=== PATIENT | female | born 1960 | race Caucasian/White ===

== ENCOUNTER 2017-09-19 14:50 | Outpatient (RCR) | payer OTHER, SELFPAY | END 2017-09-24 | LOC: INF 14:50 | PROVIDERS: PCP Physician Assistant | DX: C50.919 Malignant neoplasm of unspecified site of unspecified female breast (principal) | CPT/HCPCS: 99214 ==

== ENCOUNTER 2018-01-29 01:24 | Emergency (ER) | payer OTHER, SELFPAY ==
[2018-01-29 01:34] VITALS: BP 130/82; PULSE 89; RESP 18; TEMP 36.3; O2SAT 94; BMI 42.3
--- NOTE | 2018-01-29 03:08 | ED_ITS ---
HPI - Allergic Reaction General Chief complaint: Allergic Reaction Stated complaint: HIVES ALL OVER, ITCHING HANDS/FEET Time Seen by Provider: 01/29/18 03:08 Source: patient Mode of arrival: ambulatory Limitations: no limitations History of Present Illness HPI narrative: The patient was at a birthday constitution party earlier today. She developed itchiness and hives afterwards. She did take Benadryl and went to bed , when she awoke she was covered with hives, worse than before the medication. She particularly noted a lot of swelling to the hands and feet. She was very uncomfortable. She had minimal throat tightness, and no difficulty swallowing or breathing. She had no facial swelling, or tongue or oral edema. She has not been ill. She has no URI symptoms, no fever or chills. She has no history of allergic reactions. She had a little swelling to the upper lip yesterday, 1 day prior. Related Data Home Medications Medication Instructions Recorded Confirmed DICYCLOMINE HCL (BENTYL) 20 mg PO QDAY #0 11/03/12 LEVOTHYROXINE SODIUM 0.15 mg PO QDAY #0 11/03/12 [ASA] 81 mg Q DAY #0 11/03/12 [CRANBERRY EXTRACT] 4,200 mg PO BID #0 09/28/17 [D-MANNOSE] 2 tab PO QDAY #0 09/28/17 [TURMERIC] 450 mg PO QDAY #0 09/28/17 ibuprofen 800 mg PO PRN PRN #0 09/28/17 simvastatin 20 mg PO QDAY #0 09/28/17 Previous Rx's Medication Instructions Recorded prednisone 60 mg PO DAILY 5 Days #15 tab 01/29/18 Allergies Allergy/AdvReac Type Severity Reaction Status Date / Time No Known Allergies Allergy Uncoded 10/05/17 12:14 Review of Systems Constitutional Reports as per HPI, Denies chills, Denies fever(s), Denies lethargy and Denies weakness Eyes Denies eye discharge and Denies irritation ENT Ears, Nose, Mouth, and Throat: Denies change in voice, Denies neck pain, Denies sore throat, Denies throat swelling and Denies tongue swelling Cardiovascular Denies chest pain, Denies irregular heart rhythm, Denies lightheadedness, Denies palpitations, Denies dyspnea, Denies dyspnea on exertion and Denies orthopnea Respiratory Denies cough, Denies dyspnea, Denies dyspnea on exertion and Denies wheezing Gastrointestinal Gastrointestinal: Denies abdominal pain, Denies change in bowel habits, Denies diarrhea, Denies nausea and Denies vomiting Musculoskeletal Denies neck pain Integumentary/Breasts Reports as per HPI and Reports other ( Extensive urticaria.) Neurologic Denies weakness Endocrine Denies palpitations Allergic/Immunologic Denies throat swelling, Denies tongue swelling and Denies wheezing PFSH Medical History Hyperlipidemia (Acute) Hypothyroidism (Acute) Exam Initial Vital Signs Initial Vital Signs: Vital Signs Temperature 97.3 F L 01/29/18 01:34 Pulse Rate 89 01/29/18 01:34 Respiratory Rate 18 01/29/18 01:34 Blood Pressure 130/82 H 01/29/18 01:34 Pulse Oximetry 94 01/29/18 01:34 Const General: cooperative and well developed Nutritional Appearance: well nourished Orientation: alert, awake, oriented x3 and not confused HENMT Head: normocephalic and atraumatic Nose: external nose normal Mouth: oral mucosae normal and moist mucous membranes Throat: posterior oropharynx normal, tonsils normal and uvula midline Eyes Conjunctivae: conjunctivae normal Resp Effort & Inspection: normal respiratory effort, able to speak in complete sentences, no respiratory distress and no use of accessory muscles Auscultation: clear to auscultation bilaterally, no rales, no rhonchi and no wheezes Cardio Rate: regular rate Rhythm: regular rhythm Heart Sounds: S1 normal, S2 normal, no click, no gallops, no murmurs and no rubs Pulses: normal peripheral pulses Skin General: other ( Urticaria has resolved other than a couple small spots on her abdomen. Her skin is otherwise normal.) Course Vital Signs - 8 hr 01/29/18 01:34 01/29/18 04:17 Temperature 97.3 F L 98.7 F Pulse Rate 89 76 Respiratory Rate 18 18 Blood Pressure 130/82 H 128/84 H Pulse Oximetry 94 97 Discharge Plan Departure Patient Disposition: Home, Self-Care Clinical Impression: Allergic reaction Discharge Date/Time: 01/29/18 04:18 Interventions: ED Discharge Assessment Last Done: 01/29/18 04:17 Instructions: DI for General Allergic Reactions Activity Restrictions/Additional Instructions: shower tonight, wash all clothes used throughout the day. If symptoms return, Benadryl 25 mg every 4 hr as needed. Prednisone 60 mg daily for 5 days. Return here as needed. Prescriptions: New prednisone 20 mg tablet 60 mg PO DAILY 5 Days Qty: 15 RF: 0 No Action DICYCLOMINE HCL (BENTYL) 20 mg PO QDAY Qty: 0 RF: 0 LEVOTHYROXINE SODIUM 0.15 mg PO QDAY Qty: 0 RF: 0 [ASA] 81 mg Q DAY Qty: 0 RF: 0 [D-MANNOSE] 2 tab PO QDAY Qty: 0 RF: 0 simvastatin 20 MG tablet 20 mg PO QDAY Qty: 0 RF: 0 ibuprofen 400 MG tablet 800 mg PO PRN PRNQty: 0 RF: 0 [TURMERIC] 450 mg PO QDAY Qty: 0 RF: 0 [CRANBERRY EXTRACT] 4,200 mg PO BID Qty: 0 RF: 0
[2018-01-29 04:17] VITALS: BP 128/84; PULSE 76; RESP 18; TEMP 37.1; O2SAT 97
== END 2018-01-29 04:18 | disposition home or self-care (01) ==
PROVIDERS: Emergency Provider Emergency Medicine; PCP Physician Assistant
DX: R21 Rash and other nonspecific skin eruption (principal); T78.40XA Allergy, unspecified, initial encounter
CPT/HCPCS: 99282

== ENCOUNTER → 2018-09-04 15:24 | Outpatient (CLI) | payer OTHER, SELFPAY ==
[2018-09-04 16:00] LABS: Add Manual Diff / Slide Review NO; Basophils Absolute Auto 0 /uL (0-100); Basophils Percent Auto 0.6 % (0-2); Eosinophils Absolute Auto 200 /uL (0-450); Eosinophils Percent Auto 2.3 % (2-4); Hematocrit 38.8 % (36-46); Hemoglobin 13.1 g/dL (12.0-16.0); Lymphocytes Absolute Auto 1700 /uL (1100-4500); Lymphocytes Percent Auto 24.6 % (25-40); Mean Corpuscular HGB Conc 33.6 % (30-36); Mean Corpuscular Hemoglobin 31.1 PG (26-34); Mean Corpuscular Volume 92.5 fL (80-100); Monocytes Absolute Auto 700 /uL (0-900); Monocytes Percent Auto 9.7 % (3-14); Neutrophils Absolute Auto 4300 /uL (1500-7000); Neutrophils Percent Auto 62.8 % (50-75); Platelet Count 258 X10^3/uL (150-400); Red Cell Distribution Width 13.6 % (11.6-14.8); White Blood Cell Count 6.9 X10^3/uL (4.5-11.0)
[2018-09-04 16:43] LABS: HEMOLYSIS < 15 (0-50); Potassium 4.6 mmol/L (3.4-5.1)
[2018-09-04 16:44] LABS: Alanine Aminotransferase 30 IU/L (9-52); Albumin 3.8 g/dL (3.5-5.0); Albumin Globulin Ratio 1.4 (1.0-2.8); Alkaline Phosphatase 53 U/L (38-126); Aspartate Aminotransferase 17 IU/L (14-36); Bilirubin Total 0.2 mg/dL (0.2-1.3); Blood Urea Nitrogen 16 mg/dL (7-17); Calcium 9.3 mg/dL (8.4-10.2); Carbon Dioxide 33 mmol/L (22-32); Chloride 106 mmol/L (98-107); Estimated Glomerular Filt Rate > 60.0 mL/min (>60); Globulin 2.8 g/dL (1.7-4.1); Glucose 103 mg/dL (70-100); Sodium 144 mmol/L (137-145); Total Protein 6.6 g/dL (6.3-8.2)
[2018-09-06 16:09] LABS: Cancer Antigen 27.29 22 U/mL (< 38)
== END ==
PROVIDERS: Visit Provider Nurse Practitioner Gerontology
DX: C50.919 Malignant neoplasm of unspecified site of unspecified female breast (principal)
CPT/HCPCS: 36415; 80053; 85025; 86300

== ENCOUNTER → 2018-12-06 07:53 | Outpatient (CLI) | payer OTHER, SELFPAY ==
--- NOTE | 2018-12-06 | DI.MG.S_ITS ---
BILATERAL DIGITAL SCREENING MAMMOGRAM 3D/2D WITH CAD POST LUMPECTOMY: 12/06/2018 CLINICAL: Routine screening. Personal history of left breast cancer. Family history of breast cancer. Comparison is made to exams dated: 09/12/2017 mammogram, 09/08/2016 mammogram, and 09/08/2015 mammogram - [facility]. There are scattered fibroglandular elements in both breasts. Current study was also evaluated with a Computer Aided Detection (CAD) system. There are benign post operative findings in the left breast. No significant masses, calcifications, or other findings are seen in either breast. There has been no significant interval change. IMPRESSION: There is no mammographic evidence of malignancy. A 1 year screening mammogram is recommended. This exam was interpreted at Station ID: [id number]. NOTE: For mammograms, a report in lay terms will be sent to the patient. Approximately 15% of breast malignancies will not be visualized mammographically. In the management of a palpable breast mass, a negative mammogram must not discourage biopsy of a clinically suspicious lesion. Electronically Signed By: Sekou montano/chaitanya:12/06/2018 16:31:26 letter sent: Normal Exam ACR BI-RADS Category 2: Benign Finding(s) 3342F
== END ==
PROVIDERS: PCP Physician Assistant
DX: Z12.31 Encounter for screening mammogram for malignant neoplasm of breast (principal); Z85.3 Personal history of malignant neoplasm of breast; Z80.3 Family history of malignant neoplasm of breast
CPT/HCPCS: 77063; 77067

== ENCOUNTER → 2019-12-19 14:29 | Outpatient (CLI) | payer OTHER, SELFPAY ==
--- NOTE | 2019-12-19 | DI.MG.S_ITS ---
BILATERAL DIGITAL SCREENING MAMMOGRAM 3D/2D WITH CAD POST LUMPECTOMY: 12/19/2019 CLINICAL: Routine screening. Family history of breast cancer. History of breast cancer. Comparison is made to exams dated: 12/06/2018 mammogram, 09/12/2017 mammogram, and 09/08/2016 mammogram - [facility]. The tissue of both breasts is heterogeneously dense. This may lower the sensitivity of mammography. Current study was also evaluated with a Computer Aided Detection (CAD) system. There is a benign calcification in the left breast. There also are benign post operative findings in the left breast. No significant masses, calcifications, or other findings are seen in either breast. There has been no significant interval change. IMPRESSION: There is no mammographic evidence of malignancy. A 1 year screening mammogram is recommended. This exam was interpreted at Station ID: [id number]. NOTE: For mammograms, a report in lay terms will be sent to the patient. Approximately 15% of breast malignancies will not be visualized mammographically. In the management of a palpable breast mass, a negative mammogram must not discourage biopsy of a clinically suspicious lesion. Electronically Signed By: Cynthia bell/chaitanya:12/19/2019 17:29:21 letter sent: Normal Exam ACR BI-RADS Category 2: Benign Finding(s) 3342F
== END ==
PROVIDERS: PCP Physician Assistant; Referring Provider Physician Assistant; Visit Provider Internal Medicine
DX: Z12.31 Encounter for screening mammogram for malignant neoplasm of breast (principal); Z85.3 Personal history of malignant neoplasm of breast; Z80.3 Family history of malignant neoplasm of breast
CPT/HCPCS: 77063; 77067

== ENCOUNTER → 2020-12-20 07:37 | Outpatient (CLI) | payer OTHER, SELFPAY ==
--- NOTE | 2020-12-20 07:41 | DI.MG.S_ITS ---
BILATERAL DIGITAL SCREENING MAMMOGRAM 3D/2D WITH CAD: 12/20/2020 CLINICAL: Routine screening. Personal history of left breast cancer. Family history of breast cancer. Comparison is made to exams dated: 12/19/2019 mammogram, 12/06/2018 mammogram, 09/12/2017 mammogram, 05/17/2014 mammogram, 09/08/2016 mammogram, and 09/08/2015 mammogram - [facility]. There are scattered fibroglandular elements in both breasts. Current study was also evaluated with a Computer Aided Detection (CAD) system. There is a benign calcification in the left breast. There also are benign post operative findings in the left breast. No significant masses, calcifications, or other findings are seen in either breast. There has been no significant interval change. IMPRESSION: BENIGN There is no mammographic evidence of malignancy. A 1 year screening mammogram is recommended. This exam was interpreted at Station ID: [id number]. NOTE: For mammograms, a report in lay terms will be sent to the patient. Approximately 15% of breast malignancies will not be visualized mammographically. In the management of a palpable breast mass, a negative mammogram must not discourage biopsy of a clinically suspicious lesion. Electronically Signed By: Ben ochoa/chaitanya:12/22/2020 07:30:40 letter sent: Normal Exam ACR BI-RADS Category 2: Benign Finding(s) 3342F
[2020-12-20 09:26] LABS: Add Manual Diff / Slide Review NO; Basophils Absolute Auto 0 /uL (0-100); Basophils Percent Auto 0.5 % (0-2); Eosinophils Absolute Auto 200 /uL (0-450); Eosinophils Percent Auto 2.3 % (2-4); Hematocrit 41.1 % (36-46); Hemoglobin 13.8 g/dL (12.0-16.0); Lymphocytes Absolute Auto 1700 /uL (1100-4500); Mean Corpuscular HGB Conc 33.6 % (30-36); Mean Corpuscular Hemoglobin 31.2 PG (26-34); Mean Corpuscular Volume 92.9 fL (80-100); Monocytes Absolute Auto 600 /uL (0-900); Neutrophils Absolute Auto 4400 /uL (1500-7000); Neutrophils Percent Auto 63.2 % (50-75); Platelet Count 248 X10^3/uL (150-400); Red Blood Cell Count 4.42 X10^6/uL (4.0-5.2); Red Cell Distribution Width 13.9 % (11.6-14.8); White Blood Cell Count 6.9 X10^3/uL (4.5-11.0)
[2020-12-20 09:53] LABS: Alanine Aminotransferase 24 IU/L (<35); Albumin Globulin Ratio 1.2 (1.0-2.8); Alkaline Phosphatase 62 U/L (38-126); Aspartate Aminotransferase 24 IU/L (14-36); Bilirubin Total 0.4 mg/dL (0.2-1.3); Blood Urea Nitrogen 21 mg/dL (7-17); Calcium 9.6 mg/dL (8.4-10.2); Carbon Dioxide 26 mmol/L (22-32); Chloride 108 mmol/L (98-107); Estimated Glomerular Filt Rate > 60.0 mL/min (>60); Globulin 3.3 g/dL (1.7-4.1); Glucose 94 mg/dL (70-100); HEMOLYSIS < 15 (0-50); Sodium 141 mmol/L (137-145); Total Protein 7.3 g/dL (6.3-8.2)
== END ==
PROVIDERS: PCP Physician Assistant; Referring Provider Internal Medicine; Visit Provider Internal Medicine
DX: Z12.31 Encounter for screening mammogram for malignant neoplasm of breast (principal); Z85.3 Personal history of malignant neoplasm of breast; Z80.3 Family history of malignant neoplasm of breast; C15.9 Malignant neoplasm of esophagus, unspecified
CPT/HCPCS: 36415; 77063; 77067; 80053; 85025

== ENCOUNTER → 2021-12-22 06:57 | Outpatient (CLI) | payer OTHER, SELFPAY ==
--- NOTE | 2021-12-22 | DI.MG.S_ITS ---
BILATERAL DIGITAL SCREENING MAMMOGRAM 3D/2D WITH CAD: 12/22/2021 CLINICAL: Routine screening. Breast cancer. Family history of breast cancer. Comparison is made to exams dated: 12/20/2020 mammogram, 12/19/2019 mammogram, and 12/06/2018 mammogram - [facility]. There are scattered fibroglandular elements in both breasts. Current study was also evaluated with a Computer Aided Detection (CAD) system. There is a benign calcification in the left breast. There also are benign post operative findings in the left breast. No significant masses, calcifications, or other findings are seen in either breast. There has been no significant interval change. IMPRESSION: BENIGN There is no mammographic evidence of malignancy. A 1 year screening mammogram is recommended. This exam was interpreted at Station ID: [id number]. NOTE: For mammograms, a report in lay terms will be sent to the patient. Approximately 15% of breast malignancies will not be visualized mammographically. In the management of a palpable breast mass, a negative mammogram must not discourage biopsy of a clinically suspicious lesion. Electronically Signed By: Sindy white/chaitanya:12/22/2021 17:01:07 letter sent: Normal Exam ACR BI-RADS Category 2: Benign Finding(s) 3342F
[2021-12-22 07:58] LABS: Add Manual Diff / Slide Review NO; Basophils Absolute Auto 100 /uL (0-100); Basophils Percent Auto 0.9 % (0-2); Eosinophils Absolute Auto 200 /uL (0-450); Eosinophils Percent Auto 2.8 % (2-4); Hemoglobin 13.3 g/dL (12.0-16.0); Lymphocytes Absolute Auto 1800 /uL (1100-4500); Lymphocytes Percent Auto 30.9 % (25-40); Mean Corpuscular Hemoglobin 31.6 PG (26-34); Mean Corpuscular Volume 92.8 fL (80-100); Monocytes Absolute Auto 600 /uL (0-900); Monocytes Percent Auto 9.3 % (3-14); Neutrophils Absolute Auto 3300 /uL (1500-7000); Neutrophils Percent Auto 56.1 % (50-75); Platelet Count 229 X10^3/uL (150-400); Red Cell Distribution Width 14.5 % (11.6-14.8)
[2021-12-22 08:20] LABS: Alanine Aminotransferase 22 IU/L (<35); Albumin Globulin Ratio 1.4 (1.0-2.8); Alkaline Phosphatase 52 U/L (38-126); Aspartate Aminotransferase 21 IU/L (14-36); BUN Creatinine Ratio 23.7 (6-22); Bilirubin Total 0.4 mg/dL (0.2-1.3); Blood Urea Nitrogen 18 mg/dL (7-17); Calcium 8.8 mg/dL (8.4-10.2); Carbon Dioxide 30 mmol/L (22-32); Chloride 103 mmol/L (98-107); Estimated Glomerular Filt Rate > 60 mL/min (>60); Globulin 2.8 g/dL (1.7-4.1); Glucose 103 mg/dL (80-110); HEMOLYSIS < 15 (0-50); Potassium 4.4 mmol/L (3.4-5.1); Sodium 138 mmol/L (137-145); Total Protein 6.8 g/dL (6.3-8.2)
== END ==
PROVIDERS: Internal Medicine; PCP Physician Assistant; Referring Provider Internal Medicine Medical Oncology; Visit Provider Internal Medicine Medical Oncology
DX: Z12.31 Encounter for screening mammogram for malignant neoplasm of breast (principal); Z80.3 Family history of malignant neoplasm of breast; Z85.3 Personal history of malignant neoplasm of breast
CPT/HCPCS: 36415; 77063; 77067; 80053; 85025

== ENCOUNTER → 2023-02-22 14:55 | Outpatient (CLI) | payer OTHER, SELFPAY ==
--- NOTE | 2023-02-22 | DI.MG.S_ITS ---
BILATERAL DIGITAL SCREENING MAMMOGRAM 3D/2D WITH CAD POST LUMPECTOMY: 02/22/2023 CLINICAL: Routine screening. Personal history of left breast cancer. Family history of breast cancer. Comparison is made to exams dated: 12/22/2021 mammogram, 12/20/2020 mammogram, 12/19/2019 mammogram, and 12/06/2018 mammogram - [facility]. There are scattered areas of fibroglandular density in both breasts (category b / 25%-50% glandular tissue). Current study was also evaluated with a Computer Aided Detection (CAD) system. There is a benign calcification in the left breast. There also are benign post operative findings in both breasts. No significant masses, calcifications, or other findings are seen in either breast. There has been no significant interval change. IMPRESSION: BENIGN There is no mammographic evidence of malignancy. A 1 year screening mammogram is recommended. This exam was interpreted at Station ID: [id number]. NOTE: For mammograms, a report in lay terms will be sent to the patient. Approximately 15% of breast malignancies will not be visualized mammographically. In the management of a palpable breast mass, a negative mammogram must not discourage biopsy of a clinically suspicious lesion. Electronically Signed By: Ben ochoa/chaitanya:02/23/2023 13:25:01 letter sent: Normal Exam ACR BI-RADS Category 2: Benign Finding(s) 3342F
== END ==
PROVIDERS: PCP Physician Assistant; Referring Provider Internal Medicine Medical Oncology; Visit Provider Internal Medicine Medical Oncology
DX: Z12.31 Encounter for screening mammogram for malignant neoplasm of breast (principal); Z85.3 Personal history of malignant neoplasm of breast; Z80.3 Family history of malignant neoplasm of breast
CPT/HCPCS: 77063; 77067

== ENCOUNTER 2025-03-25 13:58 | Emergency (ER) | payer OTHER, SELFPAY ==
[2025-03-25 14:26] VITALS: BP 153/71; PULSE 64; RESP 16; TEMP 36.1; O2SAT 98; BMI 44.9
--- NOTE | 2025-03-25 14:32 | DI.RAD.S_ITS ---
PROCEDURE: XR ANKLE RT MIN 3V INDICATIONS: pain swelling TECHNIQUE: 3 views of the ankle were acquired. COMPARISON: None. FINDINGS: Moderate nonspecific diffuse soft tissue swelling surrounding the right ankle medial greater than lateral. [id number] degenerative changes of the tibiotalar, talonavicular, calcaneocuboid joints with joint space narrowing and osteophytes. Posterior and inferior enthesophyte calcifications with subtle ill-defined 1.2 cm calcifications anterior to the inferior calcaneus may be related to plantar fasciitis, enthesophyte calcification or other process. No radiographic evidence of displaced fracture, dislocation or high attenuation soft tissue foreign body. IMPRESSION: Degenerative changes as discussed above. Posterior and inferior calcaneal calcifications as discussed above. Nonspecific diffuse soft tissue swelling predominantly medially. If symptoms persist or worsen, or there is high clinical suspicion of right ankle/foot abnormality, MRI could be performed. Dictated by: Gerard Franks M.D. on 03/25/2025 at 15:00 Approved by: Gerard Franks M.D. on 03/25/2025 at 15:03
--- NOTE | 2025-03-25 14:35 | DI.RAD.S_ITS ---
PROCEDURE: XR FOOT RT MIN 3V INDICATIONS: foot and ankle pain TECHNIQUE: 3 views of the foot were acquired. COMPARISON: None. FINDINGS: Nonspecific diffuse soft tissue swelling surrounding the right foot and ankle. Degenerative changes of the tibiotalar, talonavicular, calcaneocuboid, tarsal- metatarsal, 1st metatarsophalangeal joints noted. Posterior and inferior calcaneal calcifications commonly enthesophyte calcifications although plantar fasciitis inferiorly could have a similar appearance. No radiographic evidence of displaced fracture, dislocation or high attenuation soft tissue foreign body. IMPRESSION: Degenerative changes as discussed above. Posterior and inferior calcaneal calcifications as discussed above. If symptoms persist or worsen, or there is high clinical suspicion of right foot/ankle abnormality, MRI could be performed. Dictated by: Gerard Franks M.D. on 03/25/2025 at 15:04 Approved by: Gerard Franks M.D. on 03/25/2025 at 15:06
[2025-03-25 16:31] VITALS: PULSE 80
--- NOTE | 2025-03-25 16:39 | ED_ITS ---
HPI - Extremity Problem <Margaret Mao PA-C - Last Filed: 03/25/25 17:56> General Chief complaint: Extremity Problem,Nontraumatic Stated complaint: pain in right foot Time Seen by Provider: 03/25/25 14:34 Source: patient Mode of arrival: Wheelchair History of Present Illness HPI Narrative: Ms. Zhou is a very pleasant 65-year-old female with a past medical history of right Achilles tendon rupture about 2 years ago who presents to the emergency department for right foot and ankle pain x1 day. Patient states ever since having her Achilles tendon surgery she does her daily stretches. Today is her birthday and she got a pedicure and paid extra to have a massage of the ankle and calves. After attempting to get up out of the pedicure chair she could not bear any weight on the right foot/ankle due to pain of the lateral aspect of the foot and ankle. No numbness tingling weakness or swelling. No erythema or increased warmth. She is still able to plantar and dorsiflex her feet but she does have increased pain with dorsiflexion. She is here with her . Related Data Home Medications ?Medication ?Instructions ?Recorded ?Confirmed DICYCLOMINE HCL (BENTYL) 20 mg PO QDAY ##0 11/03/12 0 02/09/22 LEVOTHYROXINE SODIUM 0.15 mg PO QDAY ##0 11/03/12 02/09/22 [ASA] 81 mg Q DAY ##0 11/03/12 [CRANBERRY EXTRACT] 4,200 mg PO BID ##0 09/28/17 02/09/22 ibuprofen 400 mg tablet 800 mg PO PRN PRN Pain (Scal e 09/28/17 02/09/22 Score 4-6) ##0 simvastatin 20 mg tablet 20 mg PO QDAY ##0 09/28/17 0 02/09/22 cartilage 40 mg-collagen II 10 1 tab PO DAILY 02/06/20 02/09/22 mg-boron 5 mg-hyaluronate 3.3 mg tablet ([employer]) garlic 1,000 mg capsule 2,000 mg PO DAILY 02/06/20 0 02/09/22 vitamin E 670 mg (1,000 unit) 1,000 unit DAILY 0 02/09/22 capsule Allergies Allergy/AdvReac Type Severity Reaction Status Date / Time No Known Allergies Allergy Uncoded 03/25/25 14:26 Review of Systems <Margaret Mao PA-C - Last Filed: 03/25/25 17:56> Review of Systems ROS Unobtainable: All systems reviewed & are unremarkable except as noted in HPI and below Patient History <Margaret Mao PA-C - Last Filed: 03/25/25 17:56> Medical History Hyperlipidemia Hypothyroidism Social History Smoking Status: Never smoker Smoking Status: Never smoker alcohol intake frequency: 0-2 drinks per day Exam <Margaret Mao PA-C - Last Filed: 03/25/25 17:56> Narrative Exam Narrative: GENERAL: 65 year old patient appears stated age. Well-developed patient, in no acute distress. HEAD: Atraumatic. Normocephalic. NECK: Trachea midline. Cervical ROM intact. CARDIOVASCULAR: Regular rate RESPIRATORY: ?Nonlabored respirations. ?Speaking in clear, full sentences. EXTREMITIES: Pt has TTP right lateral ankle/lateral malleolus region. She does have edema of both ankles, nonpitting. Brisk cap refill on all toe, 1+ DP pulses bilaterally. 5/5 bilateral plantar flexion strength, patient does have diminished strength with dorsiflexion right ankle. Sensation intact to light touch on plantar and dorsal surface of the feet. No color change. NEURO: AOx3. ?Clear speech. ?Moves all 4 extremities appropriately. SKIN: No rash or erythema of visible areas Initial Vital Signs Initial Vital Signs: Vital Signs Temperature 97.0 F L 03/25/25 14:26 Pulse Rate 64 03/25/25 14:26 Respiratory Rate 16 03/25/25 14:26 Blood Pressure 153/71 H 03/25/25 14:26 Pulse Oximetry 98 03/25/25 14:26 Oxygen Delivery Method Room Air 03/25/25 14:26 <Julia Leiva DO - Last Filed: 04/04/25 07:42> Initial Vital Signs Initial Vital Signs: Vital Signs Temperature 97.0 F L 03/25/25 14:26 Pulse Rate 64 03/25/25 14:26 Respiratory Rate 16 03/25/25 14:26 Blood Pressure 153/71 H 03/25/25 14:26 Pulse Oximetry 98 03/25/25 14:26 Oxygen Delivery Method Room Air 03/25/25 14:26 Course <Margaret Mao PA-C - Last Filed: 03/25/25 17:56> Orders Ordered: Discontinued Medications Hydrocodone Bitart/Acetaminophen (Hydrocodone/Acet 5/325 Tablet) 1 tab PO NOW ONE Stop: 03/25/25 16:52 Last Admin: 03/25/25 17:33 Dose: 1 tab Documented By: JUVENTINO Ondansetron HCl (Ondansetron 4 Mg Odt) 4 mg SL NOW ONE Stop: 03/25/25 16:52 Last Admin: 03/25/25 17:33 Dose: 4 mg Documented By: JUVENTINO Vital Signs Vital signs: Vital Signs - 8 hr 03/25/25 14:26 Temperature 97.0 F L Pulse Rate 64 Respiratory Rate 16 Blood Pressure 153/71 H Pulse Oximetry 98 Oxygen Delivery Method Room Air <Julia Leiva DO - Last Filed: 04/04/25 07:42> Orders Ordered: Discontinued Medications Hydrocodone Bitart/Acetaminophen (Hydrocodone/Acet 5/325 Tablet) 1 tab PO NOW ONE Stop: 03/25/25 16:52 Last Admin: 03/25/25 17:33 Dose: 1 tab Documented By: JUVENTINO Ondansetron HCl (Ondansetron 4 Mg Odt) 4 mg SL NOW ONE Stop: 03/25/25 16:52 Last Admin: 03/25/25 17:33 Dose: 4 mg Documented By: JUVENTINO Vital Signs Vital signs: Vital Signs - 8 hr 03/25/25 14:26 Temperature 97.0 F L Pulse Rate 64 Respiratory Rate 16 Blood Pressure 153/71 H Pulse Oximetry 98 Oxygen Delivery Method Room Air MDM - Extremity (Nontraumatic) <Margaret Mao PA-C - Last Filed: 03/25/25 17:56> Medical Records Attestation: I reviewed the patient's medical records. Imaging Data Right Ankle XR: Radiologist's Impression: PROCEDURE: XR ANKLE RT MIN 3V INDICATIONS: pain swelling TECHNIQUE: 3 views of the ankle were acquired. COMPARISON: None. FINDINGS: Moderate nonspecific diffuse soft tissue swelling surrounding the right ankle medial greater than lateral. Yaep-va-gyhlzljv degenerative changes of the tibiotalar, talonavicular, calcaneocuboid joints with joint space narrowing and osteophytes. Posterior and inferior enthesophyte calcifications with subtle ill-defined 1.2 cm calcifications anterior to the inferior calcaneus may be related to plantar fasciitis, enthesophyte calcification or other process. No radiographic evidence of displaced fracture, dislocation or high attenuation soft tissue foreign body. IMPRESSION: Degenerative changes as discussed above. Posterior and inferior calcaneal calcifications as discussed above. Nonspecific diffuse soft tissue swelling predominantly medially. If symptoms persist or worsen, or there is high clinical suspicion of right ankle/foot abnormality, MRI could be performed. Dictated by: Gerard Franks M.D. on 03/25/2025 at 15:00 Approved by: Gerard Franks M.D. on 03/25/2025 at 15:03 Right Foot XR: Radiologist's Impression: PROCEDURE: XR FOOT RT MIN 3V INDICATIONS: foot and ankle pain TECHNIQUE: 3 views of the foot were acquired. COMPARISON: None. FINDINGS: Nonspecific diffuse soft tissue swelling surrounding the right foot and ankle. Degenerative changes of the tibiotalar, talonavicular, calcaneocuboid, tarsal- metatarsal, 1st metatarsophalangeal joints noted. Posterior and inferior calcaneal calcifications commonly enthesophyte calcifications although plantar fasciitis inferiorly could have a similar appearance. No radiographic evidence of displaced fracture, dislocation or high attenuation soft tissue foreign body. IMPRESSION: Degenerative changes as discussed above. Posterior and inferior calcaneal calcifications as discussed above. If symptoms persist or worsen, or there is high clinical suspicion of right foot/ankle abnormality, MRI could be performed. Dictated by: Gerard Franks M.D. on 03/25/2025 at 15:04 Approved by: Gerard Franks M.D. on 03/25/2025 at 15:06 [facility] Narrative Medical decision making narrative: 65-year-old female with a past medical history of right Achilles tendon rupture about 2 years ago who presents to the emergency department for right foot and ankle pain x1 day. Differential diagnosis includes but isn't limited to right ankle sprain, strain, fracture, dislocation arthritis, etc. On exam patient is in no acute distress, nontoxic appearing, vital signs appropriate. She has tenderness to palpation of the lateral right ankle with no obvious defects. She is neurovascularly intact. No signs of infection. X-ray right foot and ankle reveal degenerative changes in addition to posterior in ferior calcaneal calcifications. Patient does have history of Achilles tendon rupture. Recommended rice therapy, orthopedic boot, weight-bearing as tolerated, prompt follow up with Orthopedics. Patient does have a boot at home that she would prefer to use, Lemuel wrap was applied here, we will treat with dose of hydrocodone-acetaminophen for pain, recommended ibuprofen acetaminophen for home. Patient verbalized understanding of all information is agreeable with this plan. She is stable for discharge home with her . Discharge Plan Departure Patient Disposition: Home Clinical Impression: Arthritis of foot, right, Arthritis of right ankle Right ankle strain Qualifiers: Encounter type: initial encounter Qualified Code(s): S96.911A - Strain of unspecified muscle and tendon at ankle and foot level, right foot, initial encounter Instructions: DI for Ankle Pain Activity Restrictions/Additional Instructions: Dear Ms. Zhou, HAPPY BIRTHDAY!!! I'm sorry you had to be here today. Thank you for coming to the emergency department. Today you were evaluated for right ankle/foot pain. X-ray of her ankle and foot did reveal multiple degenerative changes. It is possible that you have injured some of the soft tissues in your ankle, so I would like you to wear your orthopedic walking boot and follow up with [facility]. Please use RICE therapy for your pain in addition to ibuprofen/acetaminophen. Rest the painful area. Ice the area of pain/swelling for at least 15 minutes, 4x a day. Compress the area of swelling using a brace, wrap, or splint if applied. Elevate the painful or swollen extremity by supporting it above the level of the heart with pillows when sitting or laying. Please take Ibuprofen (Motrin/Advil) or Acetaminophen (Tylenol) for pain. These are available over the counter. You may take Ibuprofen 600 mg every 8 hours with food for pain. You may also take Acetaminophen 650 mg every 4-6 hours for pain. Do not exceed 3000 mg of Tylenol a day as this can cause liver damage. Do not drink alcohol with either of these medications. Please follow up with your primary care doctor within the next 2-3 days for ER follow-up. (If you do not have a PCP you can call [phone]. ?to schedule an appointment with an [facility] Primary Care Provider) IF YOU DEVELOP ANY NEW OR WORSENING SYMPTOMS, RETURN TO THE ER! Please read the attached instructions, they highlight more specific treatments and interventions for you at home. Thank you for letting me participate in your care, Margaret Mao PA-C Prescriptions: No Action DICYCLOMINE HCL (BENTYL) 20 mg PO QDAY Qty: 0 LEVOTHYROXINE SODIUM 0.15 mg PO QDAY Qty: 0 [ASA] 81 mg Q DAY Qty: 0 simvastatin 20 MG tablet 20 mg PO QDAY Qty: 0 ibuprofen 400 MG tablet 800 mg PO PRN PRN (Reason: Pain (Scale Score 4-6)) Qty: 0 [CRANBERRY EXTRACT] 4,200 mg PO BID Qty: 0 vitamin E 1,000 unit Capsule 1,000 unit DAILY garlic 1,000 mg Capsule 2,000 mg PO DAILY Joint Health 40-10-5-3.3 mg Tablet 1 tab PO DAILY Referrals: Hamilton Carl PA-C [Primary Care Provider, Medical] Sean Sanchez MD [Physician, Orthopedic Surgery] Referral Note: Right ankle arthritis and pain Stand Alone Forms: Patient Portal/API ED Sign-out <Julia Leiva DO - Last Filed: 04/04/25 07:42> Cosign ED Attending Betiature Attestation: I was available for consultation.
[2025-03-25] MEDS: ONDANSETRON 4 MG ODT SL (17:33)
[2025-03-25 17:59] VITALS: BP 138/74; PULSE 78; RESP 18; TEMP 36.9; O2SAT 99
== END 2025-03-25 18:00 | disposition home or self-care (01) ==
PROVIDERS: Emergency Provider Physician Assistant; PCP Physician Assistant
DX: S96.911A Strain of unspecified muscle and tendon at ankle and foot level, right foot, initial encounter (principal); M19.071 Primary osteoarthritis, right ankle and foot
CPT/HCPCS: 73610; 73630; 99283